=== PATIENT | male | born 1950 | race Two or more races ===

== ENCOUNTER → 2025-08-01 | Outpatient (CLI) | payer MEDICARE, BC, SELFPAY ==
[2025-08-01 10:56] LABS: Basophils # (Auto) 0.0 Thou/mm3 (0.0-0.2); Basophils % (Auto) 1 % (0-2.5); Eosinophils # (Auto) 0.1 Thou/mm3 (0.0-0.5); Eosinophils % (Auto) 2 % (0-10); Hematocrit 47.3 % (41.0-53.0); Hemoglobin 16.3 g/dL (13.5-16.0); Immature Granulocytes Auto 0.02 Thou/mm3 (0.00-0.00); Lymphocytes # (Auto) 1.8 Thou/mm3 (1.0-4.8); Lymphocytes % (Auto) 31 % (10-50); Mean Corpuscular HGB Conc 34.5 g/dl (31.0-37.0); Mean Corpuscular Hemoglobin 30.0 pg (25.0-35.0); Mean Corpuscular Volume 87 fL (80-100); Monocytes # (Auto) 0.4 Thou/mm3 (0.0-0.8); Monocytes % (Auto) 7 % (0-12); Neutrophils # (Auto) 3.4 Thou/mm3 (1.8-7.7); Neutrophils % (Auto) 59 % (37-80); Nucleated Red Blood Cell # 0.00 Thou/mm3 (0.00-0.00); Nucleated Red Blood Cell % 0 /100 WBC (0); Platelet Count 199 Thou/mm3 (140-440); RDW Standard Deviation 39.8 fL (35.1-43.9); Red Blood Count 5.44 Miln/mm3 (4.50-5.90); White Blood Count 5.8 Thou/mm3 (3.8-10.6)
[2025-08-01 11:13] LABS: Alanine Aminotransferase 24 U/L (10-49); Albumin, Serum 4.3 gm/dL (3.4-4.8); Albumin/Globulin Ratio 2.0 (1.2-2.2); Alkaline Phosphatase 82 U/L (46-116); Anion Gap 9 (7-16); Aspartate Amino Transferase 17 U/L (0-34); BUN/Creatinine Ratio 15 Ratio (12-20); Bilirubin,Total 0.7 mg/dL (0.3-1.2); Blood Urea Nitrogen 16 mg/dL (9-23); Calcium 9.2 mg/dL (8.3-10.6); Calcium (Corrected) 9.2 mg/dL (8.5-10.1); Carbon Dioxide 25.3 mMol/L (20.0-31.0); Cardiac Risk Estimate 7.1 RATIO (4.0-6.7); Chloride 107 mMol/L (98-107); Cholesterol 235 mg/dL (132-200); Creatinine (Component) 1.1 mg/dL (0.6-1.3); Globulin 2.2 gm/dL (2.3-3.5); Glucose 113 mg/dL (74-106); HDL Cholesterol 33 mg/dL (40-60); Osmolality,Calculated 283 (275-295); Potassium 4.4 mMol/L (3.4-5.1); Sodium 141 mMol/L (136-145); Thyroid Stimulating Hormone 2.05 uIU/mL (0.55-4.78); Total Protein 6.5 gm/dL (5.7-8.2); Triglycerides 454 mg/dL (30-150); eGFR > 60 See Note
[2025-08-01 11:50] LABS: Folate 10.87 ng/mL (>5.38); Vitamin B12 338 pg/mL (211-911)
[2025-08-03 17:50] LABS: PSA, Free 0.46 ng/mL; PSA, Total 1.4 ng/mL (< OR = 4.0)
== END | disposition home or self-care (01) ==
LOC: COPL 08:56
PROVIDERS: PCP Student in an Organized Health Care Education/Training Program; Referring Provider Student in an Organized Health Care Education/Training Program; Visit Provider Student in an Organized Health Care Education/Training Program
DX: I10 Essential (primary) hypertension (principal); E78.5 Hyperlipidemia, unspecified; R53.83 Other fatigue; Z12.5 Encounter for screening for malignant neoplasm of prostate
CPT/HCPCS: 36415; 80053; 80061; 82607; 82746; 83036; 84153; 84154; 84443; 85025

== ENCOUNTER 2025-09-22 01:23 | Emergency (ER) | payer MEDICARE, BC, SELFPAY ==
[2025-09-22 01:25] VITALS: BMI 31.9
--- NOTE | 2025-09-22 01:27 | EKG_ITS ---
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
[2025-09-22 01:29] VITALS: BP 174/104; BP 200/91; PULSE 63; RESP 20; TEMP 36.5; O2SAT 97
--- NOTE | 2025-09-22 02:12 | EDNOTE_ITS ---
ED Chest Pain RME/HPI General Chief Complaint: Chest Pain Stated Complaint: EPIGASTRIC/CHEST PAIN Time Seen by Provider: 09/22/25 02:12 Arrival date/time: 09/22/25 01:23 RME / HPI RME / HPI narrative: Dr. Orr?s Main ED Evaluation: 75yo male with a history of HTN, HLD presents to the ED for a chief complaint of lower chest pain x 2300. Patient states he woke up at 2300 having sharp chest pain. No radiation or migration. Patient states he was burping a lot , which helped. Patient states his pain has since resolved. Patient denies any shortness of breath, cough, fever, chills, or any other associated symptoms. Denies tobacco use. He is compliant with his medications. Denies any history of similar symptoms. NKA. Related Data Allergies Allergy/AdvReac Type Severity Reaction Status Date / Time No Known Allergies Allergy Verified 09/22/25 01:24 Review of Systems Review of Systems Systems Reviewed: All systems reviewed, normal except as documented Past Medical History Past Medical History CARDIAC: Positive Hypercholesterolemia and Hypertension; Negative Congestive Heart Failure RESPIRATORY: Negative Chronic Obstructive Pulmonary Disease (COPD) GENITOURINARY: Negative Renal Disease ENDOCRINE: Negative Diabetes Mellitus Type 1 or Diabetes Mellitus Type 2 Surgical History SURGICAL: Positive Knee Sx (LEFT KNEE) Social History SMOKING STATUS: Never smoker ED Exam Narrative Physical exam: Generally patient is alert in no obvious distress, heart regular rate and rhythm, lungs clear to auscultation equal laterally, abdomen soft bowel sounds present also nontender, skin is warm pale and dry, neurologic exam shows no focal motor deficits with Merlin Coma Scale of 15 Course Course Course Narrative: CXR is ordered for determining the etiology of chest pain. Quality Measures none Orders Category Date Time Status EKG (ED ONLY) *Do not use* NOW Care 09/22/25 01:27 Completed EKG (ED Only) Stat Exams 09/22/25 01:27 Draft XR chest 1V portable Stat Exams 09/22/25 02:18 Taken CBC Stat Lab 09/22/25 02:43 Completed CMP [Comprehensive Metabolic Panel] Stat Lab 09/22/25 02:43 Completed Troponin I Stat Lab 09/22/25 02:43 Completed Vital Signs Vital signs: Vital Signs Temperature 97.7 F 09/22/25 01:29 Pulse Rate 63 09/22/25 01:29 Respiratory Rate 20 09/22/25 01:29 Blood Pressure 200/91 H 09/22/25 01:29 Pulse Oximetry (%) 97 09/22/25 01:29 Oxygen Delivery Method Room Air 09/22/25 01:29 Chest Pain MDM Narrative [facility] Narrative:: Scribe Attestation: 09/22/25 - Ni Lomeli, am scribing for and in the presence of Dr. Orr. Patient is chest pain-free at the time of my evaluation. Heart score is 3. EKG shows normal sinus rhythm at a rate of 66 with a right bundle branch block without ischemic change. Troponin drawn greater than 3 hours from the onset of chest pain was not elevated. Chest x-ray shows normal cardiac silhouette without evidence for failure. Clear lung wynn. Patient is stable for discharge. He is to return to the emergency room if pain becomes more intense or happens more frequently or lasts longer. Other than that, the patient may follow-up with his primary care physician. Patient data External records reviewed:: [facility] previous records Clinical information provided by:: patient Social determinants that could affect healthcare access:: none Patient has the following chronic illnesses:: HTN, HLD How is presenting disease/condition affected by chronic disease/condition?: uneffected by Evaluation data The following diagnostics were reviewed and interpreted by me:: lab results, radiology exam(s) and EKG tracing(s) Lab and/or radiology exams considered but not ordered:: none Interpretation Summary: See [facility] Medications / Prescriptions Medications or Prescriptions considered but not ordered:: none Medication administrations:: none Consultations Consultation(s) initiated? (list below): No Diagnosis Chest Pain Differential Diagnosis: other (See MDM) Most likely diagnosis given after review of the tests above:: see clinical impression below Admission Indicated Admission indicated?: not indicated Admission Request Was there a request for admission?: No Disposition Plan Disposition Plan: Discharge Discharge Attestation Discharge Attestation: The patient and all family members were given an opportunity to ask questions and understood the discharge instructions. Discharge instructions specifically effects, indications for sooner follow up or return to the emergency department, and the expected course of current diagnosis. Patient condition: Stable Discharge Plan Plan Patient Disposition: HOME (Self Care) Problem List Clinical Impression: Chest pain Patient/Caregiver Discharge Instructions Education Materials: ED Chest Pain, Uncertain Cause Additional Instructions: Return if pain becomes more severe or lasts longer or becomes more frequent. Continue current medications including your high blood pressure medication. Follow-up with your doctor. Print Language: Bulgarian Stand Alone Forms: Freda Award Info., Patient Portal Info Letter
--- NOTE | 2025-09-22 02:18 | XR_ITS ---
CLINICAL INDICATION: Chest pain today TECHNIQUE: XR chest 1V portable Exam date and time: 09/22/2025 at 2:41 a.m. COMPARISON: Chest radiograph 09/25/2011 FINDINGS: The cardiomediastinal silhouette is within normal limits. Mild streaky/coarse appearance of the lung bases noted, nonspecific. No segmental or lobar consolidation. No pleural effusion or pneumothorax. Degenerative changes of the skeletal structures. No apparent acute osseous abnormality. IMPRESSION: Nonspecific mild coarsening of the bibasilar lung markings which could be due to very mild bronchitis/bronchiolitis, aspiration and/or mild fibrotic changes. Otherwise, no airspace consolidation or pleural effusion. - This report was generated utilizing speech recognition software. -
[2025-09-22 02:49] LABS: Basophils # (Auto) 0.1 Thou/mm3 (0.0-0.2); Basophils % (Auto) 1 % (0-2.5); Eosinophils # (Auto) 0.1 Thou/mm3 (0.0-0.5); Eosinophils % (Auto) 2 % (0-10); Hematocrit 45.0 % (41.0-53.0); Hemoglobin 15.3 g/dL (13.5-16.0); Immature Granulocytes Auto 0.02 Thou/mm3 (0.00-0.00); Lymphocytes # (Auto) 1.3 Thou/mm3 (1.0-4.8); Lymphocytes % (Auto) 19 % (10-50); Mean Corpuscular HGB Conc 34.0 g/dl (31.0-37.0); Mean Corpuscular Hemoglobin 29.8 pg (25.0-35.0); Mean Corpuscular Volume 88 fL (80-100); Monocytes # (Auto) 0.5 Thou/mm3 (0.0-0.8); Monocytes % (Auto) 8 % (0-12); Neutrophils # (Auto) 5.1 Thou/mm3 (1.8-7.7); Neutrophils % (Auto) 71 % (37-80); Nucleated Red Blood Cell # 0.00 Thou/mm3 (0.00-0.00); Nucleated Red Blood Cell % 0 /100 WBC (0); Platelet Count 169 Thou/mm3 (140-440); RDW Standard Deviation 41.1 fL (35.1-43.9); Red Blood Count 5.13 Miln/mm3 (4.50-5.90); White Blood Count 7.1 Thou/mm3 (3.8-10.6)
[2025-09-22 03:06] LABS: Alanine Aminotransferase 24 U/L (10-49); Albumin, Serum 4.6 gm/dL (3.4-4.8); Albumin/Globulin Ratio 2.3 (1.2-2.2); Alkaline Phosphatase 82 U/L (46-116); Anion Gap 10 (7-16); Aspartate Amino Transferase 18 U/L (0-34); BUN/Creatinine Ratio 17 Ratio (12-20); Bilirubin,Total 0.6 mg/dL (0.3-1.2); Blood Urea Nitrogen 20 mg/dL (9-23); Calcium 8.9 mg/dL (8.3-10.6); Calcium (Corrected) 8.9 mg/dL (8.5-10.1); Carbon Dioxide 24.9 mMol/L (20.0-31.0); Chloride 107 mMol/L (98-107); Creatinine (Component) 1.2 mg/dL (0.6-1.3); Estimated Creatinine Clearance 60.5 mL/min (>60); Globulin 2.0 gm/dL (2.3-3.5); Glucose 137 mg/dL (74-106); Osmolality,Calculated 287 (275-295); Potassium 4.1 mMol/L (3.4-5.1); Sodium 142 mMol/L (136-145); Total Protein 6.6 gm/dL (5.7-8.2); Troponin I < 0.020 ng/mL (0.0-0.045); eGFR > 60 See Note
[2025-09-22 03:14] VITALS: BP 158/90; PULSE 62; RESP 20; TEMP 36.6; O2SAT 96
== END 2025-09-22 03:14 | disposition home or self-care (01) ==
LOC: SERX 04:38
PROVIDERS: Emergency Provider Emergency Medicine; PCP Family Medicine
DX: R07.9 Chest pain, unspecified (principal); E78.5 Hyperlipidemia, unspecified; I10 Essential (primary) hypertension
CPT/HCPCS: 36415; 71045; 80053; 84484; 85025; 93005; 99283

== ENCOUNTER 2025-10-24 01:16 | Emergency (ER) | payer MEDICARE, BC, SELFPAY ==
[2025-10-24 01:17] VITALS: BMI 31.9
[2025-10-24 01:46] VITALS: BP 112/80; BP 206/81; PULSE 54; RESP 19; TEMP 36.5; O2SAT 98
--- NOTE | 2025-10-24 01:58 | EKG_ITS ---
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
--- NOTE | 2025-10-24 01:59 | PD.EDRME ---
Rapid Medical Screening Exam RME Arrival date/time: 10/24/25 01:16 This is a case of 75-year-old male who came in the emergency room due to both upper abdominal pain epigastric pain radiating to chest associated with nausea vomiting Chief Complaint: Abdominal Pain Vital signs: Vital Signs Temperature 97.7 F 10/24/25 01:46 Pulse Rate 54 L 10/24/25 01:46 Blood Pressure 206/81 H 10/24/25 01:46 Oxygen Delivery Method Nasal Cannula 10/24/25 01:46 Exam: Abdominal exam tenderness both upper quadrant no guarding no rebound no rigidity Clinical Impression: Abdominal pain
[2025-10-24] MEDS: ONDANSETRON ODT 4 MG TABRAP PO (02:09)
[2025-10-24] MEDS: MORPHINE SULF INJ 4 MG/ML VIAL IM (02:09)
[2025-10-24 02:10] VITALS: BP 206/81; PULSE 54
[2025-10-24 02:38] LABS: Collection Type, Urine Clean Catch; Squamous Epithelial Cell,Urine 0 /hpf (0-5)
[2025-10-24 02:55] VITALS: BP 202/90; PULSE 60; RESP 18; O2SAT 95
[2025-10-24 02:56] LABS: Basophils # (Auto) 0.1 Thou/mm3 (0.0-0.2); Basophils % (Auto) 1 % (0-2.5); Eosinophils # (Auto) 0.0 Thou/mm3 (0.0-0.5); Eosinophils % (Auto) 0 % (0-10); Hematocrit 46.5 % (41.0-53.0); Hemoglobin 15.6 g/dL (13.5-16.0); Immature Granulocytes Auto 0.04 Thou/mm3 (0.00-0.00); Lymphocytes # (Auto) 1.5 Thou/mm3 (1.0-4.8); Lymphocytes % (Auto) 14 % (10-50); Mean Corpuscular HGB Conc 33.5 g/dl (31.0-37.0); Mean Corpuscular Hemoglobin 29.3 pg (25.0-35.0); Mean Corpuscular Volume 87 fL (80-100); Monocytes # (Auto) 0.5 Thou/mm3 (0.0-0.8); Monocytes % (Auto) 4 % (0-12); Neutrophils # (Auto) 9.0 Thou/mm3 (1.8-7.7); Neutrophils % (Auto) 81 % (37-80); Nucleated Red Blood Cell # 0.00 Thou/mm3 (0.00-0.00); Nucleated Red Blood Cell % 0 /100 WBC (0); Platelet Count 196 Thou/mm3 (140-440); RDW Standard Deviation 39.8 fL (35.1-43.9); Red Blood Count 5.32 Miln/mm3 (4.50-5.90); White Blood Count 11.1 Thou/mm3 (3.8-10.6)
--- NOTE | 2025-10-24 02:57 | PC.NURSE ---
PATIENT REFUSED TO WAIT FOR CT SCAN AND FOR BLOOD PRESSURE TO GO DOWN BEFORE DISCHARGE. NOTIFIED PROVIDER
[2025-10-24 03:01] LABS: Bilirubin,Urine Negative (Negative); Blood,Urine Trace (Negative); Clarity,Urine Clear (Clear/Hazy); Color,Urine Lt-Yellow (Lt Yel-Yel); Glucose, Urine Negative (Negative); Ketones,Urine 1+ (Negative); Leukocyte Esterase,Urine Negative (Negative); Nitrite,Urine Negative (Negative); PH,Urine 5.5 (5.0-7.0); Protein,Urine Negative (Neg - Trace); RBC,Urine 2 /hpf (0-3); Specific Gravity,Urine 1.023 (1.001-1.035); Urobilinogen,Urine Negative mg/dL (0.0-1.0); WBC,Urine < 1 /hpf (0-5)
[2025-10-24 03:09] LABS: Alanine Aminotransferase 23 U/L (10-49); Albumin, Serum 4.7 gm/dL (3.4-4.8); Albumin/Globulin Ratio 1.6 (1.2-2.2); Alkaline Phosphatase 81 U/L (46-116); Anion Gap 11 (7-16); Aspartate Amino Transferase 18 U/L (0-34); BUN/Creatinine Ratio 17 Ratio (12-20); Bilirubin,Total 0.7 mg/dL (0.3-1.2); Blood Urea Nitrogen 20 mg/dL (9-23); Calcium 8.8 mg/dL (8.3-10.6); Calcium (Corrected) 8.8 mg/dL (8.5-10.1); Carbon Dioxide 25.8 mMol/L (20.0-31.0); Chloride 104 mMol/L (98-107); Creatinine (Component) 1.2 mg/dL (0.6-1.3); Estimated Creatinine Clearance 60.5 mL/min (>60); Globulin 3.0 gm/dL (2.3-3.5); Glucose 159 mg/dL (74-106); Lipase 30 U/L (12-53); Osmolality,Calculated 286 (275-295); Potassium 3.8 mMol/L (3.4-5.1); Sodium 141 mMol/L (136-145); Total Protein 7.7 gm/dL (5.7-8.2); Troponin I < 0.020 ng/mL (0.0-0.045); eGFR > 60 See Note
== END 2025-10-24 03:00 | disposition left against medical advice (07) ==
PROVIDERS: Nurse Practitioner Family; Emergency Provider Emergency Medicine; PCP Family Medicine
DX: R10.12 Left upper quadrant pain (principal); R10.11 Right upper quadrant pain; R10.13 Epigastric pain; R11.2 Nausea with vomiting, unspecified; I45.10 Unspecified right bundle-branch block
CPT/HCPCS: 36415; 80053; 81001; 83690; 84484; 85025; 93005; 96372; 99283; J2270; Q0162; A9270

== ENCOUNTER → 2025-10-25 | Outpatient (CLI) | payer MEDICARE, BC, SELFPAY ==
[2025-10-25 10:26] LABS: Basophils # (Auto) 0.0 Thou/mm3 (0.0-0.2); Basophils % (Auto) 0 % (0-2.5); Eosinophils # (Auto) 0.1 Thou/mm3 (0.0-0.5); Eosinophils % (Auto) 1 % (0-10); Hematocrit 48.2 % (41.0-53.0); Hemoglobin 16.3 g/dL (13.5-16.0); Immature Granulocytes Auto 0.03 Thou/mm3 (0.00-0.00); Lymphocytes # (Auto) 1.8 Thou/mm3 (1.0-4.8); Lymphocytes % (Auto) 21 % (10-50); Mean Corpuscular HGB Conc 33.8 g/dl (31.0-37.0); Mean Corpuscular Hemoglobin 30.0 pg (25.0-35.0); Mean Corpuscular Volume 89 fL (80-100); Monocytes # (Auto) 0.8 Thou/mm3 (0.0-0.8); Monocytes % (Auto) 9 % (0-12); Neutrophils # (Auto) 6.2 Thou/mm3 (1.8-7.7); Neutrophils % (Auto) 69 % (37-80); Nucleated Red Blood Cell # 0.00 Thou/mm3 (0.00-0.00); Nucleated Red Blood Cell % 0 /100 WBC (0); Platelet Count 182 Thou/mm3 (140-440); RDW Standard Deviation 42.3 fL (35.1-43.9); Red Blood Count 5.44 Miln/mm3 (4.50-5.90); White Blood Count 9.0 Thou/mm3 (3.8-10.6)
[2025-10-25 10:51] LABS: Alanine Aminotransferase 18 U/L (10-49); Albumin, Serum 4.9 gm/dL (3.4-4.8); Albumin/Globulin Ratio 1.6 (1.2-2.2); Alkaline Phosphatase 74 U/L (46-116); Anion Gap 8 (7-16); Aspartate Amino Transferase 17 U/L (0-34); BUN/Creatinine Ratio 17 Ratio (12-20); Bilirubin,Total 1.3 mg/dL (0.3-1.2); Blood Urea Nitrogen 22 mg/dL (9-23); Calcium 9.5 mg/dL (8.3-10.6); Calcium (Corrected) 9.5 mg/dL (8.5-10.1); Carbon Dioxide 30.3 mMol/L (20.0-31.0); Chloride 104 mMol/L (98-107); Creatinine (Component) 1.3 mg/dL (0.6-1.3); Globulin 3.0 gm/dL (2.3-3.5); Glucose 108 mg/dL (74-106); Osmolality,Calculated 287 (275-295); Potassium 4.8 mMol/L (3.4-5.1); Sodium 142 mMol/L (136-145); Total Protein 7.9 gm/dL (5.7-8.2); eGFR 58 See Note
[2025-10-25 12:25] LABS: Urea Breath Test Negative (Negative)
== END | disposition home or self-care (01) ==
PROVIDERS: PCP Family Medicine; Referring Provider Student in an Organized Health Care Education/Training Program; Visit Provider Student in an Organized Health Care Education/Training Program
DX: I10 Essential (primary) hypertension (principal); E78.5 Hyperlipidemia, unspecified
CPT/HCPCS: 36415; 80053; 83013; 83014; 85025